=== PATIENT | female | born 1955 | race Caucasian/White ===

== ENCOUNTER 2018-08-31 11:41 | Outpatient (CLI) | payer OTHER ==
--- NOTE | 2018-08-31 21:31 | RAD ---
LUMBAR SPINE THREE VIEWS: 08/31/18 No fracture or area of bony destruction was seen. There may be some minor disc space narrowing at L4- L5 and L5-S1, but it is truly minor. Degenerative changes are prominent in the facet joints of the lo wer three lumbar levels but not elsewhere. There is some mild scoliosis convexed left. The SI joints are symmetrical. Constipation is noted. IMPRESSION: Mild degenerative changes, particularly in the facet joints. MRI could be helpful in determining any neural impingement. POS: HOME
== END 2018-08-31 11:42 | disposition home or self-care (01) ==
LOC: BURRAD 11:41
PROVIDERS: ATTEND Family Medicine
DX: M54.42 Lumbago with sciatica, left side (principal); M47.816 Spondylosis without myelopathy or radiculopathy, lumbar region
CPT/HCPCS: 72100

== ENCOUNTER 2019-09-26 14:26 | Outpatient (CLI) | payer MEDICARE ==
--- NOTE | 2019-09-26 14:43 | RAD ---
XR Chest Pa Lat STANDARD HISTORY: Cough and wheezing COMPARISON: None. FINDINGS: Heart size is borderline. Lungs appear mildly hyperexpanded. No focal infiltrative process or signs of failure. Arthritic changes of the spine are noted. IMPRESSION: No active intrathoracic disease.
== END 2019-09-26 14:27 | disposition home or self-care (01) ==
LOC: BURRAD 14:26
PROVIDERS: ATTEND Physician Assistant
DX: J40 Bronchitis, not specified as acute or chronic (principal); R06.2 Wheezing
CPT/HCPCS: 71046